=== PATIENT | female | born 2000 | race Caucasian/White ===

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

== ENCOUNTER 2022-06-30 22:57 | Inpatient (IN) ==
[2022-06-30] MEDS ORDERED: LIDOCAINE 1% LOCAL 20 ML VIAL INFIL PRN (23:47)
[2022-06-30] MEDS ORDERED: OXYTOCIN 30 UNITS/500 ML BAG IV PRN (23:47)
--- NOTE | 2022-06-30 23:50 | History & Physical Report ---
Date of Service June 30, 2022 Assessment & Plan (1) PROM (premature rupture of membranes): (2) with 39 completed weeks gestation: Plan gross rupture on exam. fetus category one. Offered expectant management or initiating pitocin now. She would like to walk and see if spontaneous labor ensues. Discussed at 6 hours , if not making change would suggest pitocin. Patient desires epidural. Anticipate . History of Present Illness Chief Complaint: lof Primary Care Provider: NO PCP Patient is a at 39 07 who presents to labor and delivery after large, clear gush of fluid at 10pm. Notes some mild cramping, no VB. +fm. Has had an essentially uncomplicated . and Delivery Plans Rubella Equivocal *recommend PPX MMR has not had covid vaccine--recommended. 07/12 Induction OB Labs: Blood Type A Positive 11/26/21 Antibody Screen NEGATIVE 11/26/21 Hemoglobin 12.4 g/dl (12.0-16.0) 04/15/22 Hematocrit 36.7 % (34.1-44.9) 04/15/22 Mean Corpuscular Volume 83.9 fL (80.0-100.0) 11/26/21 Platelet Count 233 K/uL (130-400) 11/26/21 Rubella IgG Antibody Equivocal (Immune) L 11/26/21 Rapid Plasma Reagin Nonreactive (Nonreactive) 11/26/21 Hepatitis B Surface Antigen. NON-REACTIVE (NON-REACTIVE) 11/26/21 Hepatitis C Antibody (EIA) NON-REACTIVE (NON-REACTIVE) 11/26/21 HIV (1&2) Ag and Ab Confirmation NON-REACTIVE (NON-REACTIVE) 11/26/21 Glucose 1 Hour 50 gm Load 93 mg/dl (70-130) 04/15/22 OB Optional Labs: Chlamydia trachomatis RNA NOT DETECTED (NOT DETECTED) 11/26/21 Neisseria gonorrhoeae RNA NOT DETECTED (NOT DETECTED) 11/26/21 Labs Reviewed: Declines cf/sma--mln Declines cfdna--mln gbs neg Allergies Allergy/AdvReac Type Severity Reaction Status Date / Time No Known Allergies Allergy Verified 06/28/22 09:41 Home Medications Medication Instructions Recorded Confirmed Type prenat.vits,starr,[id number] 1 tab PO DAILY 11/19/21 06/30/22 History calcium carbonate 200 mg calcium 200 mg PO BID 06/30/22 06/30/22 History (500 mg) chewable tablet (Tums) Patient History Medical History Dysmenorrhea Hidradenitis suppurativa History of fracture of right ankle Oral contraceptive pill surveillance Varicella vaccination Surgical History History of surgery pilonidal cyst removed from tailbone Family History Grandmother (Paternal) Colorectal cancer Great Grandmother Grandfather Diabetes Grandmother Hypertension Aunt Breast cancer Father Migraine with aura Sister Migraine with aura Denies family history of Ovarian cancer Social History Smoking Status: Never smoker Hx Alcohol Use: No Hx Substance Use: No Preferred Language: Hebrew Communication Ability: Effective Gold Blower Required: No Beliefs That Will Affect Care: None marital status: marital status details: Evangelista Koo (24) [phone] Current Living Situation: Spouse Current Living Situation Comment: lives with spouse, dog current occupational status: employed current occupation: [employer] teacher Other Information That Helps Us Care for You: No Feels Safe at Home: Yes Safety Concerns: Feels Safe At This Time Assistive Devices: Glasses OB History g1--present GUARD ENTRANCE REGISTRAR History noncontributory Physical Exam Constitutional: WD/WN, vitals as above Gastrointestinal (Abdomen): soft, gravid, nt Psychiatric: A+Ox3, euthymic affect Genitourinary: cx--2/50/-2/post/soft efw 7-8 toco--irritability efm--130s with mod variability, accels to 150s, no decels Results & Data Vital Signs (Past 12 Hours) Vital Signs Temp Pulse Resp BP 06/30/22 23:22 36.9 C 18 06/30/22 23:20 97 H 135/61 Coding Level of Care Code None Diagnoses PROM (premature rupture of membranes) O42.90 with 39 completed weeks gestation Z3A.39
[2022-07-01 01:08] LABS: Hematocrit (blood only) 35.4 % (37.0-47.0); Hemoglobin 11.8 g/dl (12.0-16.0); Mean Corpuscular Hemoglobin 28.1 pg (25.0-34.0); Mean Corpuscular Hgb Conc 33.3 g/dL (32.0-36.0); Mean Corpuscular Volume 84.3 fL (80.0-100.0); Platelet Count 203 K/uL (130-400); RDW Coefficient of Variation 13.2 % (11.5-14.5); RDW Standard Deviation 40.7 fL (36.4-46.3); White Blood Count 12.89 K/ul (4.8-10.8)
[2022-07-01] MEDS ORDERED: CALCIUM CARBONATE 500 MG CHEWABLE TAB PO PRN (01:16)
--- NOTE | 2022-07-01 04:07 | Labor Progress Brief Note ---
Date of Service July 01, 2022 Subjective not noting much change in contractions Assessment & Plan (1) PROM (premature rupture of membranes): Plan start pit, fetus category one. Admission and Anticipated Discharge Date Admission Date: June 30, 2022 Physical Exam Physical Exam: cx--2/50/-2 toco--cliff efm--130s wtih mod variability, accels to 150s, no decels. Results & Data Vital Signs (Past 12 Hours) Vital Signs Temp Pulse Resp BP 06/30/22 23:22 36.9 C 18 07/01/22 03:03 36.6 C 88 16 134/73 07/01/22 01:13 18 07/01/22 01:13 36.7 C 18 06/30/22 23:20 97 H 135/61 Coding Level of Care Code None Diagnoses PROM (premature rupture of membranes) O42.90
[2022-07-01] MEDS ORDERED: OXYTOCIN 30 UNITS/500 ML BAG IV PRN (04:17)
[2022-07-01] MEDS: LACTATED RINGER'S 1,000 ML IV PRN ×5 (04:30→21:40)
[2022-07-01] MEDS ORDERED: NALOXONE HCL 0.4 MG/1 ML VIAL/CARP IV PRN (08:07)
[2022-07-01] MEDS ORDERED: diphenhydrAMINE 50 MG/ML VIAL IV PRN (08:07)
[2022-07-01] MEDS ORDERED: ePHEDrine sulfate 50 MG/ML AMP IV PRN (08:07)
[2022-07-01] MEDS ORDERED: NALBUPHINE HCL INJ 10 MG/ML AMP IV PRN (08:07)
[2022-07-01] MEDS ORDERED: NALOXONE HCL 1 MG in SODIUM CHLORIDE 0.9% 1000ML 1,000 ML IV PRN (08:07)
--- NOTE | 2022-07-01 08:07 | Anesthesiology Consultation ---
Date of Service July 01, 2022 Assessment & Plan (1) Encounter for pre-operative examination: Chart Review Chart Review: Patient NOT seen in Pre Admission Testing and Acceptable Risk for Labor Epidural Consults Requested none History Height/Weight Height: 5 ft 8 in Weight: 127.459 kg Allergies Allergy/AdvReac Type Severity Reaction Status Date / Time No Known Allergies Allergy Verified 06/28/22 09:41 Medications Home Medications Medication Instructions Recorded Confirmed Last Taken prenat.vits,starr,lgv-[id number]-[id number] 1 tab PO DAILY 11/19/21 06/30/22 06/30/22 calcium carbonate 200 mg calcium 200 mg PO BID 06/30/22 06/30/22 06/30/22 (500 mg) chewable tablet (Tums) Active Medications Generic Name Dose Route Start Last Admin Trade Name Freq PRN Reason Stop Dose Admin Calcium Carbonate 500 mg 07/01/22 01:16 07/01/22 01:26 Calcium Carbonate 500 Mg Chewable Tab PO 07/31/22 01:15 500 mg Q4 PRN Administration Indigestion Lactated Ringer's 1,000 mls @ 125 mls/hr 06/30/22 23:47 07/01/22 04:30 Lr IV 07/02/22 23:46 125 mls/hr .Q8H PRN Administration L&D Protocol Protocol Oxytocin 30 units in 500 mls @ 8 mls/hr 07/01/22 04:17 07/01/22 07:06 Pitocin IV 07/03/22 04:16 0.48 units/hr .Q24H PRN 8 mls/hr Labor Induction/Augmentation Titration Protocol 0.48 UNITS/HR Past Medical History Medical History Dysmenorrhea Hidradenitis suppurativa History of fracture of right ankle Oral contraceptive pill surveillance Varicella vaccination Past Family History Family History Grandmother (Paternal) Colorectal cancer Great Grandmother Grandfather Diabetes Grandmother Hypertension Aunt Breast cancer Father Migraine with aura Sister Migraine with aura Denies family history of Ovarian cancer Past Surgical History Surgical History History of surgery pilonidal cyst removed from tailbone Social History Smoking Status: Never smoker Hx Alcohol Use: No Hx Substance Use: No substance use type: does not use Physical Exam Vital Signs Last Vital Signs Temp 98.2 F 07/01/22 07:09 Pulse 88 07/01/22 07:29 Resp 18 07/01/22 07:09 BP 142/60 H 07/01/22 07:29 Testing Laboratory Results 07/01/22 00:11 Blood Type A Positive 07/01/22 00:11 Antibody Screen NEGATIVE 07/01/22 00:11
[2022-07-01] MEDS ORDERED: ePHEDrine sulfate 50 MG/ML AMP ONE (08:11)
[2022-07-01] MEDS ORDERED: SODIUM CHLORIDE 0.9% PF INJ 10 ML VIAL ONE (08:11)
[2022-07-01] MEDS ORDERED: fentaNYL citrate PF 100 MCG/2 ML VIAL ONE ×2 (08:11→21:12)
[2022-07-01] MEDS ORDERED: LIDOCAINE 2%/EPINEPHRINE 1:200,000 20 ML PF ONE (08:12)
[2022-07-01] MEDS ORDERED: BUPIVACAINE 0.25% PF 30 ML VIAL ONE ×2 (08:12→21:15)
[2022-07-01] MEDS ORDERED: fentaNYL 2MCG/ML ROPIVACAINE 1.25MG/ML 100 ML BAG EPI ONE (08:12)
[2022-07-01] MEDS: fentaNYL 2MCG/ML ROPIVACAINE 1.25MG/ML 100 ML BAG EPI PRN ×2 (08:38→18:03)
[2022-07-01] MEDS ORDERED: ONDANSETRON INJ 2 MG/ML 2 ML VIAL IV PRN (09:06)
[2022-07-01] MEDS ORDERED: ONDANSETRON INJ 2 MG/ML 2 ML VIAL ONE (09:09)
--- NOTE | 2022-07-01 10:35 | Labor Progress Brief Note ---
Date of Service July 01, 2022 Subjective comfortable w/ epidural Assessment & Plan (1) PROM (premature rupture of membranes): Plan: 21 yo G1 at 39 1/7 [facility] admitted w/ prom VSS Fetus cat 1 Labor - pit at 12, arom of forebag performed. Will see if helps GBS neg epidural PRN Admission and Anticipated Discharge Date Admission Date: June 30, 2022 Physical Exam Genitourinary: Manual OB Exam: + cervical dilation 2 cm, + cervical effacement 70%, + station -2 and + amniotic fluid (arom forebag) OB Exam Monitor Tracing: + external FHT monitor used, + external uterine monitor used (q4) and + category I (135/mod/+accel/-decel) Results & Data Vital Signs (Past 12 Hours) Vital Signs Temp Pulse Resp BP Pulse Ox 07/01/22 07:09 98.2 F 18 06/30/22 23:22 98.4 F 18 07/01/22 10:31 101 H 117/65 100 07/01/22 10:28 114 H 94 07/01/22 10:26 80 99 07/01/22 10:21 85 98 07/01/22 10:16 94 07/01/22 10:16 99 H 07/01/22 10:17 107 H 116/66 07/01/22 10:16 80 99 07/01/22 10:11 80 98 07/01/22 10:06 81 98 07/01/22 10:01 84 128/59 L 99 07/01/22 09:56 79 98 07/01/22 09:51 80 97 07/01/22 09:46 80 98 07/01/22 09:45 81 127/60 07/01/22 09:41 81 97 07/01/22 09:36 80 96 07/01/22 09:31 82 97 07/01/22 09:30 81 135/66 07/01/22 09:15 20 07/01/22 09:15 20 07/01/22 09:26 84 97 07/01/22 09:21 90 96 07/01/22 09:16 112 H 07/01/22 09:16 117 H 93/57 L 97 07/01/22 09:11 113 H 97 07/01/22 09:06 138 H 97 07/01/22 09:01 109 H 97 07/01/22 09:00 109 H 127/61 07/01/22 08:56 125 H 149/80 H 98 07/01/22 08:51 113 H 98 07/01/22 08:46 95 H 98 07/01/22 08:44 96 H 122/60 07/01/22 08:42 93 H 116/55 L 07/01/22 08:41 99 H 98 07/01/22 08:40 97 H 111/59 L 07/01/22 08:38 96 H 111/58 L 07/01/22 08:36 96 H 07/01/22 08:36 99 H 115/57 L 98 07/01/22 08:35 97 H 120/64 07/01/22 08:33 97 H 135/65 07/01/22 08:31 115 H 139/63 99 07/01/22 08:28 100 H 139/68 07/01/22 08:26 99 H 07/01/22 08:26 93 H 140/70 99 07/01/22 08:24 90 135/78 07/01/22 08:21 99 H 07/01/22 08:21 92 H 129/73 100 07/01/22 07:29 88 142/60 H 07/01/22 06:28 86 119/63 07/01/22 05:56 16 07/01/22 05:56 16 07/01/22 05:29 98 H 133/56 L 07/01/22 05:04 18 07/01/22 05:04 98.2 F 18 07/01/22 04:27 96 H 127/88 07/01/22 03:03 97.9 F 88 16 134/73 07/01/22 01:13 18 07/01/22 01:13 98.1 F 18 06/30/22 23:20 97 H 135/61 Coding Level of Care Code None Diagnoses PROM (premature rupture of membranes) O42.90
--- NOTE | 2022-07-01 15:21 | Labor Progress Brief Note ---
Date of Service July 01, 2022 Subjective comfortable w/ epidural Assessment & Plan (1) PROM (premature rupture of membranes): Plan: 21 yo G1 at 39 1/7 [facility]ga admitted w/ prom VSS Fetus cat 1 Labor - pit at 20, IUPC placed to guide pit. some progress noted GBS neg epidural in place Admission and Anticipated Discharge Date Admission Date: June 30, 2022 Physical Exam Genitourinary: Manual OB Exam: + cervical dilation 3 cm, + cervical effacement 70% and + station -2 OB Exam Monitor Tracing: + external FHT monitor used, + external uterine monitor used (q4) and + category I (140/mod/+accel/-decel) Results & Data Vital Signs (Past 12 Hours) Vital Signs Temp Pulse Resp BP Pulse Ox 07/01/22 07:09 98.2 F 18 07/01/22 15:16 106 H 100 07/01/22 15:12 107 H 93 07/01/22 15:11 102 H 102/53 L 100 07/01/22 15:06 108 H 100 07/01/22 15:01 106 H 100 07/01/22 14:30 18 07/01/22 14:30 18 07/01/22 14:56 102 H 100 07/01/22 14:55 103 H 109/55 L 07/01/22 14:51 103 H 99 07/01/22 14:46 100 H 100 07/01/22 14:41 83 100 07/01/22 14:40 102 H 127/63 07/01/22 14:36 110 H 18 99 07/01/22 14:31 101 H 100 07/01/22 14:26 109 H 121/66 100 07/01/22 14:21 116 H 99 07/01/22 14:16 117 H 99 07/01/22 14:14 113 H 93 07/01/22 14:11 104 H 99 07/01/22 14:10 98.1 F 83 131/79 07/01/22 14:06 100 H 99 07/01/22 14:01 100 H 99 07/01/22 13:56 110 H 99 07/01/22 13:55 107 H 114/64 07/01/22 13:51 104 H 100 07/01/22 13:46 119 H 100 07/01/22 13:41 105 H 100 07/01/22 13:40 107 H 134/85 07/01/22 13:36 103 H 100 07/01/22 13:31 89 99 07/01/22 13:26 95 H 106/57 L 100 07/01/22 13:21 82 100 07/01/22 13:16 92 H 99 07/01/22 13:11 83 100 07/01/22 13:10 93 H 103/58 L 07/01/22 13:06 95 H 98 07/01/22 13:01 84 100 07/01/22 12:56 86 100 07/01/22 12:54 104 H 98/53 L 07/01/22 12:51 86 18 99 07/01/22 12:46 86 98 07/01/22 12:41 87 98 07/01/22 12:40 92 H 102/56 L 07/01/22 12:36 83 98 07/01/22 12:31 83 98 07/01/22 12:26 90 99 07/01/22 12:25 91 H 97/53 L 07/01/22 12:21 102 H 98 07/01/22 12:16 95 H 98 07/01/22 12:11 92 H 100 07/01/22 12:00 18 07/01/22 12:00 18 07/01/22 12:09 91 H 99/52 L 07/01/22 11:30 18 07/01/22 11:30 18 07/01/22 12:06 94 H 99 07/01/22 12:04 88 90/54 L 07/01/22 12:03 18 07/01/22 12:03 98.4 F 18 07/01/22 12:01 98 H 100 07/01/22 11:59 88 96/50 L 07/01/22 11:56 93 H 99 07/01/22 11:52 100 H 85/46 L 07/01/22 11:51 101 H 99 07/01/22 11:38 20 07/01/22 11:38 20 07/01/22 11:47 86 89/52 L 07/01/22 11:46 90 99 07/01/22 11:41 86 99 07/01/22 11:36 111 H 100 07/01/22 11:31 82 125/60 100 07/01/22 11:26 100 H 100 07/01/22 11:21 93 H 100 07/01/22 11:17 95 H 91 07/01/22 11:16 94 H 115/60 99 07/01/22 11:11 83 100 07/01/22 11:06 84 100 07/01/22 11:01 97 H 100 07/01/22 11:00 85 115/56 L 07/01/22 10:56 82 98 07/01/22 10:30 20 07/01/22 10:30 20 07/01/22 10:51 81 99 07/01/22 10:46 87 99 07/01/22 10:41 80 99 07/01/22 10:36 78 99 07/01/22 10:31 101 H 117/65 100 07/01/22 10:28 114 H 94 07/01/22 10:26 80 99 07/01/22 10:21 85 98 07/01/22 10:16 94 07/01/22 10:16 99 H 07/01/22 10:17 107 H 116/66 07/01/22 10:16 80 99 07/01/22 10:11 80 98 07/01/22 10:06 81 98 07/01/22 10:01 84 128/59 L 99 07/01/22 09:56 79 98 07/01/22 09:51 80 97 07/01/22 09:46 80 98 07/01/22 09:45 81 127/60 07/01/22 09:41 81 97 07/01/22 09:36 80 96 07/01/22 09:31 82 97 07/01/22 09:30 81 135/66 07/01/22 09:15 20 07/01/22 09:15 20 07/01/22 09:26 84 97 07/01/22 09:21 90 96 07/01/22 09:16 112 H 07/01/22 09:16 117 H 93/57 L 97 07/01/22 09:11 113 H 97 07/01/22 09:06 138 H 97 07/01/22 09:01 109 H 97 07/01/22 09:00 109 H 127/61 07/01/22 08:56 125 H 149/80 H 98 07/01/22 08:51 113 H 98 07/01/22 08:46 95 H 98 07/01/22 08:44 96 H 122/60 07/01/22 08:42 93 H 116/55 L 07/01/22 08:41 99 H 98 07/01/22 08:40 97 H 111/59 L 07/01/22 08:38 96 H 111/58 L 07/01/22 08:36 96 H 07/01/22 08:36 99 H 115/57 L 98 07/01/22 08:35 97 H 120/64 07/01/22 08:33 97 H 135/65 07/01/22 08:31 115 H 139/63 99 07/01/22 08:28 100 H 139/68 07/01/22 08:26 99 H 07/01/22 08:26 93 H 140/70 99 07/01/22 08:24 90 135/78 07/01/22 08:21 99 H 07/01/22 08:21 92 H 129/73 100 07/01/22 07:29 88 142/60 H 07/01/22 06:28 86 119/63 07/01/22 05:56 16 07/01/22 05:56 16 07/01/22 05:29 98 H 133/56 L 07/01/22 05:04 18 07/01/22 05:04 98.2 F 18 07/01/22 04:27 96 H 127/88 Coding Level of Care Code None Diagnoses PROM (premature rupture of membranes) O42.90
--- NOTE | 2022-07-01 18:52 | Labor Progress Brief Note ---
Date of Service July 01, 2022 Subjective comfortable w/ epidural Assessment & Plan (1) PROM (premature rupture of membranes): Plan: 21 yo G1 at 39 1/7 wga admitted w/ prom VSS Fetus cat 1 Labor - pit at 20, ctx more regular and iupc demonstrating adequacy and progress noted. Continue induction GBS neg epidural in place Admission and Anticipated Discharge Date Admission Date: June 30, 2022 Physical Exam Genitourinary: Manual OB Exam: + cervical dilation 4 cm, + cervical effacement 70% and + station -2 OB Exam Monitor Tracing: + external FHT monitor used, + intra-uterine pressure catheter used (q2-4) and + category I (140/mod/+accel/- decel) Results & Data Vital Signs (Past 12 Hours) Vital Signs Temp Pulse Resp BP Pulse Ox 07/01/22 07:09 98.2 F 18 07/01/22 18:46 110 H 98 07/01/22 18:30 18 07/01/22 18:30 18 07/01/22 18:41 105 H 100/53 L 98 07/01/22 18:36 108 H 98 07/01/22 18:31 103 H 97 07/01/22 18:26 116 H 99 07/01/22 18:25 102 H 122/56 L 07/01/22 18:21 102 H 98 07/01/22 18:16 105 H 99 07/01/22 18:11 105 H 99 07/01/22 18:10 104 H 116/62 07/01/22 18:08 18 07/01/22 18:08 99.1 F 18 07/01/22 18:06 95 H 99 07/01/22 18:01 101 H 98 07/01/22 17:56 97 H 99 07/01/22 17:54 106 H 109/56 L 07/01/22 17:51 99 H 97 07/01/22 17:46 100 H 98 07/01/22 17:41 97 H 07/01/22 17:41 93 H 113/59 L 99 07/01/22 17:36 104 H 98 07/01/22 17:31 93 H 98 07/01/22 17:26 89 98 07/01/22 17:24 98 H 111/56 L 07/01/22 17:21 93 H 97 07/01/22 17:16 88 97 07/01/22 17:11 86 98 07/01/22 17:10 91 H 108/55 L 07/01/22 17:06 84 98 07/01/22 17:01 88 98 07/01/22 16:56 92 H 98 07/01/22 16:54 93 H 112/59 L 07/01/22 16:51 98 H 99 07/01/22 16:46 90 98 07/01/22 16:41 82 98 07/01/22 16:39 86 108/54 L 07/01/22 16:36 84 98 07/01/22 16:31 95 H 99 07/01/22 16:26 83 98 07/01/22 16:25 83 110/54 L 07/01/22 16:21 88 98 07/01/22 16:16 94 H 98 07/01/22 16:11 84 99 07/01/22 16:10 88 112/58 L 07/01/22 16:06 93 H 99 07/01/22 16:01 95 H 100 07/01/22 15:56 88 07/01/22 15:56 86 115/58 L 100 07/01/22 15:51 94 H 100 07/01/22 15:46 97 H 100 07/01/22 15:41 108 H 100 07/01/22 15:40 103 H 103/53 L 07/01/22 15:36 105 H 100 07/01/22 15:31 103 H 100 07/01/22 15:26 107 H 100 07/01/22 15:25 107 H 97/61 L 07/01/22 15:21 100 H 99 07/01/22 15:16 106 H 100 07/01/22 15:12 107 H 93 07/01/22 15:11 102 H 102/53 L 100 07/01/22 15:06 108 H 100 07/01/22 15:01 106 H 100 07/01/22 14:30 18 07/01/22 14:30 18 07/01/22 14:56 102 H 100 07/01/22 14:55 103 H 109/55 L 07/01/22 14:51 103 H 99 07/01/22 14:46 100 H 100 07/01/22 14:41 83 100 07/01/22 14:40 102 H 127/63 07/01/22 14:36 110 H 18 99 07/01/22 14:31 101 H 100 07/01/22 14:26 109 H 121/66 100 07/01/22 14:21 116 H 99 07/01/22 14:16 117 H 99 07/01/22 14:14 113 H 93 07/01/22 14:11 104 H 99 07/01/22 14:10 98.1 F 83 131/79 07/01/22 14:06 100 H 99 07/01/22 14:01 100 H 99 07/01/22 13:56 110 H 99 07/01/22 13:55 107 H 114/64 07/01/22 13:51 104 H 100 07/01/22 13:46 119 H 100 07/01/22 13:41 105 H 100 07/01/22 13:40 107 H 134/85 07/01/22 13:36 103 H 100 07/01/22 13:31 89 99 07/01/22 13:26 95 H 106/57 L 100 07/01/22 13:21 82 100 07/01/22 13:16 92 H 99 07/01/22 13:11 83 100 07/01/22 13:10 93 H 103/58 L 07/01/22 13:06 95 H 98 07/01/22 13:01 84 100 07/01/22 12:56 86 100 07/01/22 12:54 104 H 98/53 L 07/01/22 12:51 86 18 99 07/01/22 12:46 86 98 07/01/22 12:41 87 98 07/01/22 12:40 92 H 102/56 L 07/01/22 12:36 83 98 07/01/22 12:31 83 98 07/01/22 12:26 90 99 07/01/22 12:25 91 H 97/53 L 07/01/22 12:21 102 H 98 07/01/22 12:16 95 H 98 07/01/22 12:11 92 H 100 07/01/22 12:00 18 07/01/22 12:00 18 07/01/22 12:09 91 H 99/52 L 07/01/22 11:30 18 07/01/22 11:30 18 07/01/22 12:06 94 H 99 07/01/22 12:04 88 90/54 L 07/01/22 12:03 18 07/01/22 12:03 98.4 F 18 07/01/22 12:01 98 H 100 07/01/22 11:59 88 96/50 L 07/01/22 11:56 93 H 99 07/01/22 11:52 100 H 85/46 L 07/01/22 11:51 101 H 99 07/01/22 11:38 20 07/01/22 11:38 20 07/01/22 11:47 86 89/52 L 07/01/22 11:46 90 99 07/01/22 11:41 86 99 07/01/22 11:36 111 H 100 07/01/22 11:31 82 125/60 100 07/01/22 11:26 100 H 100 07/01/22 11:21 93 H 100 07/01/22 11:17 95 H 91 07/01/22 11:16 94 H 115/60 99 07/01/22 11:11 83 100 07/01/22 11:06 84 100 07/01/22 11:01 97 H 100 07/01/22 11:00 85 115/56 L 07/01/22 10:56 82 98 07/01/22 10:30 20 07/01/22 10:30 20 07/01/22 10:51 81 99 07/01/22 10:46 87 99 07/01/22 10:41 80 99 07/01/22 10:36 78 99 07/01/22 10:31 101 H 117/65 100 07/01/22 10:28 114 H 94 07/01/22 10:26 80 99 07/01/22 10:21 85 98 07/01/22 10:16 94 07/01/22 10:16 99 H 07/01/22 10:17 107 H 116/66 07/01/22 10:16 80 99 07/01/22 10:11 80 98 07/01/22 10:06 81 98 07/01/22 10:01 84 128/59 L 99 07/01/22 09:56 79 98 07/01/22 09:51 80 97 07/01/22 09:46 80 98 07/01/22 09:45 81 127/60 07/01/22 09:41 81 97 07/01/22 09:36 80 96 07/01/22 09:31 82 97 07/01/22 09:30 81 135/66 07/01/22 09:15 20 07/01/22 09:15 20 07/01/22 09:26 84 97 07/01/22 09:21 90 96 07/01/22 09:16 112 H 07/01/22 09:16 117 H 93/57 L 97 07/01/22 09:11 113 H 97 07/01/22 09:06 138 H 97 07/01/22 09:01 109 H 97 07/01/22 09:00 109 H 127/61 07/01/22 08:56 125 H 149/80 H 98 07/01/22 08:51 113 H 98 07/01/22 08:46 95 H 98 07/01/22 08:44 96 H 122/60 07/01/22 08:42 93 H 116/55 L 07/01/22 08:41 99 H 98 07/01/22 08:40 97 H 111/59 L 07/01/22 08:38 96 H 111/58 L 07/01/22 08:36 96 H 07/01/22 08:36 99 H 115/57 L 98 07/01/22 08:35 97 H 120/64 07/01/22 08:33 97 H 135/65 07/01/22 08:31 115 H 139/63 99 07/01/22 08:28 100 H 139/68 07/01/22 08:26 99 H 07/01/22 08:26 93 H 140/70 99 07/01/22 08:24 90 135/78 07/01/22 08:21 99 H 07/01/22 08:21 92 H 129/73 100 07/01/22 07:29 88 142/60 H Coding Level of Care Code None Diagnoses PROM (premature rupture of membranes) O42.90
[2022-07-01] MEDS ORDERED: NURSING L&D Epidural Breakthrough Pain Update ONE (20:48)
--- NOTE | 2022-07-01 21:21 | Anesthesia Procedure Note ---
Date of Service July 01, 2022 Anesthesia Epidural Re-Dose Vital Signs Temp Pulse Resp BP Pulse Ox 97.5 F L 99 H 18 123/66 99 07/01/22 19:16 07/01/22 21:19 07/01/22 20:58 07/01/22 21:19 07/01/22 21:17 Notes Pain Intensity: 0 Dilatation (cm): 6.5 Effacement (%): 90 Called by nursing to evaluate epidural as the patient is having increased pain. The epidural was re-dosed with the following medications (all medications via epidural route) after negative aspiration of the epidural catheter for CSF/HEME. 0.125% Bupivicaine (8ml) with 100 mcg Fentanyl After Epidural Re-Dose Mental Status: alert / awake / arousable Pain: improving with treatment Airway Patency, RR, SpO2: stable & adequate BP & HR: stable & adequate
[2022-07-01] MEDS ORDERED: MINERAL OIL 30 ML UDC ONE (23:55)
--- NOTE | 2022-07-02 00:55 | Delivery Summary ---
Vaginal Delivery Summary Date of Service July 02, 2022 Vaginal Delivery Summary [facility] PREOPERATIVE DIAGNOSIS: 1. Single intrauterine at 39 2/7 wga 2. Prolonged premature rupture of membranes POSTOPERATIVE DIAGNOSIS: 1. Single intrauterine at 39 2/7 wga 2. Prolonged premature rupture of membranes 3. Delivered PROCEDURE: 1. Normal spontaneous vaginal delivery. SURGEON: Patricia Clark MD ANESTHESIA: Epidural. ESTIMATED BLOOD LOSS: 300 mL FLUIDS: Continuous LR. URINE OUTPUT: None. COMPLICATIONS: None. CONDITION: Stable. INDICATIONS: 21 yo G1 at 39 2/7 wga presented last evening with LOF and confirmed PROM and 2cm. She was managed expectantly however started on pitocin after no change. A forebag was ruptured and she received an epidural for pain control. She continued to make slow progress and an IUPC was placed to guide pitocin. She did progress to complete and desired to push. FINDINGS: A viable female infant, weight pending with Apgars of 7 and 9 at 1 and 5 minutes respectively. SPECIMEN: Cord blood OPERATIVE REPORT: The patient progressed to 10 cm, 100% effaced and +2 station, pushed over intact perineum with anesthesia to deliver a viable female infant, weight and Apgars as above. Head of delivered in CATHERINE position. No nuchal cord was present. Body and shoulders were delivered without difficulty. was delivered to maternal abdomen and nursing staff. Delayed cord clamping was performed for 60 seconds. Cord was clamped and cut. Cord blood was obtained. Placenta delivered spontaneously intact with 3-vessel cord. IV oxytocin and fundal massage were given for excellent hemostasis. Vagina, cervix, perineum, and placenta were inspected. A vaginal laceration was noted and repaired using 3-0 vicryl, there was excellent hemostasis. Sponge and needle counts correct x2. No sponges were left behind. Mother and stable in immediate period. [facility] Vaginal Delivery Charge Vaginal Delivery Codes: 40245 global code for the antepartum, delivery, and post- Delivery Type Details: [facility]
[2022-07-02] MEDS ORDERED: BENZOCAINE 20% AER SPR 82.5 GM CAN EXT PRN (01:09)
[2022-07-02] MEDS ORDERED: DIPHTHERIA/TETANUS/PERTUSSIS 0.5mL SYR/VIAL (Age 7+yrs) IM ONE (01:09)
[2022-07-02] MEDS ORDERED: OXYTOCIN 30 UNITS/500 ML BAG IV PRN (01:09)
[2022-07-02] MEDS ORDERED: HYDROCORTISONE ACETATE 25 MG SUPP PR PRN (01:09)
[2022-07-02] MEDS ORDERED: MEASLES, MUMPS & RUBELLA VIRUS VIAL SQ ONE (01:09)
[2022-07-02] MEDS ORDERED: ACETAMINOPHEN 325 MG TAB PO PRN (01:09)
[2022-07-02] MEDS: IBUPROFEN 600 MG TAB PO PRN ×5 (03:15→20:16)
--- NOTE | 2022-07-02 08:33 | Anesthesia Procedure Note ---
Date of Service July 02, 2022 Anesthesia Post Epidural Note Vital Signs Vital Signs: Temp Pulse Resp BP Pulse Ox O2 Del Method 37.3 C 108 H 20 148/79 H 98 Room Air 07/02/22 03:05 07/02/22 03:05 07/02/22 03:05 07/02/22 03:05 07/02/22 03:05 07/02/22 03:05 Pain Intensity Abdomen: Pain Intensity: 5 Notes Mental Status: alert / awake / arousable Nausea / Vomiting: adequately controlled Pain: adequately controlled Airway Patency, RR, SpO2: stable & adequate BP & HR: stable & adequate Hydration State: stable & adequate Neuraxial Anesthesia: was administered and sensory block is resolving Anesthetic Complications: no major complications apparent Epidural: Removed without complications and With tip intact
[2022-07-02] MEDS: PRENATAL VITAMIN 1 TAB PO SCH (09:12)
[2022-07-02] MEDS: FERROUS SULFATE 325 MG TAB PO SCH (09:12)
[2022-07-02] MEDS: DOCUSATE SODIUM 100 MG CAP PO SCH ×2 (09:27→20:16)
[2022-07-03] MEDS: IBUPROFEN 600 MG TAB PO PRN ×2 (00:20→07:22)
[2022-07-03] MEDS: PRENATAL VITAMIN 1 TAB PO SCH (07:22)
[2022-07-03] MEDS: FERROUS SULFATE 325 MG TAB PO SCH (07:22)
[2022-07-03] MEDS: DOCUSATE SODIUM 100 MG CAP PO SCH (07:22)
--- NOTE | 2022-07-03 07:25 | Obstetrical Progress Note ---
Date of Service July 03, 2022 Assessment & Plan (1) Normal vaginal delivery: Desires D/C, instructions reviewed. Subjective Ambulation: ambulating normally Voiding: no voiding problems Passing Gas:: Yes Diet Tolerance:: regular diet Lochia:: Small Feeding Type:: breast feeding Physical Exam Constitutional WD/WN, vitals as above Eyes PERRL, conjunctivae normal, anicteric sclerae Neck normal visual inspection Respiratory normal respiratory effort and able to speak in complete sentences; no respiratory distress and no labored breathing Cardiovascular Rate/Rhythm: regular rate and regular rhythm Extremities: no edema Chest (Breasts) Chest: normal inspection of chest Gastrointestinal (Abdomen) Inspection/Auscultation: abdomen normal to inspection Soft, postgravid Psychiatric A+Ox3, euthymic affect Genitourinary OB Exam Abdomen: + fundal height Fundus: + firm and + relation to umbilicus (fundus just below umbilicus); not tender Results & Data Vital Signs (Past 12 Hours) Vital Signs Temp Pulse Resp BP BP Pulse Ox O2 Del Method 07/02/22 23:01 98.1 F 96 H 20 112/69 97 Room Air 07/02/22 20:20 98.2 F 93 H 18 132/77
[2022-07-03] MEDS ORDERED: bisacodyL 5 MG TABEC PO SCH (20:00)
[2022-07-04] MEDS ORDERED: bisacodyL 10 MG SUPP PR PRN
== END 2022-07-03 12:52 | disposition home or self-care (01) | DRG 806 ==
LOC: OPB 22:57 → 4S1 22:59 → 4E2 07-02 03:21